=== PATIENT | female | born 1980 | race Two or more races ===

== ENCOUNTER 2025-02-02 05:29 | Day surgery (SDC) | payer OTHER ==
[2025-02-01 10:27] VITALS: BP 115/80
[2025-02-01 11:49] LABS: BASO % 0.7 % (0.1-1.2); EOS # 0.22 (0.04-0.54); HEMATOCRIT 39.7 % (34.1-44.9); HEMOGLOBIN 13.4 g/dL (11.2-15.7); LYMPH # 1.77 (1.18-3.74); LYMPH % 32.5 % (19.3-53.1); MEAN CORPUSCULAR HEMOGLOBIN 29.9 pg (25.6-32.2); MONO # 0.45 (0.24-0.82); MONO % 8.3 % (4.7-12.5); NEUT # 2.96 (1.56-6.13); NEUT % 54.3 % (34.0-71.1); PLATELET COUNT 397 K/uL (163-369); RED BLOOD COUNT 4.48 M/uL (3.93-5.22); RED CELL DISTRIBUTION WIDTH 12.8 % (11.6-14.4)
[2025-02-01 12:39] LABS: INR 0.99; PARTIAL THROMBOPLASTIN TIME 28.2 SECONDS (22.0-34.0); PROTHROMBIN TIME 10.8 SECONDS (9.0-11.5)
[~2025-02-02] VITALS: Ht 160 cm; Wt 54.4 kg
[2025-02-02] MEDS ORDERED: MORPHINE SULFATE 4 MG/ML VIAL IV ONE (12:30)
[2025-02-02] MEDS ORDERED: MORPHINE SULFATE 4 MG/ML VIAL IV PRN (13:00)
[2025-02-02] MEDS ORDERED: ONDANSETRON HCL 2 MG/ML VIAL IV PRN (13:00)
[2025-02-02] MEDS ORDERED: BUPIVACAINE HCL 30 ML VIAL IJ ONE (13:15)
[2025-02-02] MEDS ORDERED: POVIDONE-IODINE 118 ML BOTT TOP ONE (13:15)
[2025-02-02] MEDS ORDERED: CEFAZOLIN SODIUM 1,000 MG VIAL IJ ONE (13:15)
[2025-02-02] MEDS ORDERED: TRANEXAMIC ACID 100MG/1ML (1000MG) AMPUL IV ONE (13:15)
[2025-02-02] MEDS ORDERED: POVIDONE-IODINE SCRUB 118 ML BOTT TOP ONE (13:15)
[2025-02-02] MEDS ORDERED: GENTAMICIN SULFATE 40 MG/ML VIAL IR ONE (13:15)
[2025-02-02] MEDS ORDERED: CLINDAMYCIN PHOSPHATE 150 MG/ML (900mg) IV ONE (13:15)
[2025-02-02] MEDS ORDERED: EPINEPHRINE HCL/PF 1 MG/ML AMPUL IR ONE (13:15)
== END 2025-02-02 15:40 | disposition home or self-care (01) ==
LOC: CIR.AMB 05:29
PROVIDERS: ATTEND Plastic Surgery
DX: N64.81 Ptosis of breast (principal)